=== PATIENT | female | born 1995 | race Caucasian/White ===

== ENCOUNTER 2016-07-25 01:29 | Emergency (ER) | payer BC ==
[~2016-07-25] VITALS: Ht 162.6 cm; Wt 54.2 kg
[2016-07-25 01:32] VITALS: BP 146/82; TEMP 36.6; Ht 162.6 cm; Wt 54.2 kg
--- NOTE | 2016-07-25 01:48 | EMERGENCY ROOM VISIT NOTE ---
History Report prepared by Annabelle: Rafael Beltran Under the Supervision of: Dr. Mikie Garza D.O. First contact with patient: 01:36 Chief Complaint: HEAD INJURY (MINOR) Stated Complaint: HEAD INJURY History of Present Illness The patient is a 21 year old female who presents to the Emergency Room with complaints of a sudden head injury beginning two hours prior to arrival. She currently rates her discomfort as a 6/10 in severity and associates a headache with today's symptoms. The patient states she was sitting on the edge of the tub and a heavy metal shower carmelo fell on the top of her head. She denies losing consciousness. The patient notes she was also drinking this evening. She denies nausea and vomiting. Source of History: patient Onset: two hours [employer] Position: head (top of head) Symptom Intensity: 6/10 Timing: other (sudden) Associated Symptoms: + headache, No LOC, No nausea, No vomiting Review of Systems See HPI for pertinent positives & negatives. A total of 10 systems reviewed and were otherwise negative. Past Medical & Surgical Medical Problems: (1) No pertinent past medical history Family History Patient reports no known family medical history. Social History Smoking Status: Never Smoker Alcohol Use: occasionally Drug Use: none Occupation Status: [employer] student Current/Historical Medications Unable to Obtain Active Prescriptions or Reported Meds Physical Exam Vital Signs Date Time Temp Pulse Resp B/P Pulse Ox O2 Delivery O2 Flow Rate FiO2 17 01:32 36.6 79 18 146/82 97 Room Air Physical Exam CONSTITUTIONAL/VITAL SIGNS: Reviewed / noted above. GENERAL: Non-toxic in appearance. INTEGUMENTARY: Warm, dry, and [place]. HEAD: Normocephalic. EYES: without scleral icterus or trauma. ENT/OROPHARYNX: clear and moist. LYMPHADENOPATHY/NECK: Is supple without lymphadenopathy or meningismus. RESPIRATORY: Lungs clear and equal. CARDIOVASCULAR: Regular rate and rhythm. GI/ABDOMEN: Soft and nontender. No organomegaly or pulsatile mass. No rebound or guarding. Normal bowel sounds. EXTREMITIES: Warm and well perfused. BACK: No CVA tenderness. NEUROLOGICAL: Intact without focal deficits. PSYCHIATRIC: normal affect. MUSCULOSKELETAL: Normally developed with good muscle tone. Medical Decision & Procedures ED Course 1337: Previous medical records were reviewed. The patient was evaluated in room C7. A complete history and physical examination was performed. 1345: On reevaluation, the patient is doing well. I discussed the results and findings with the patient. She verbalized agreement of the treatment plan. The patient was discharged home. Medical Decision Differential includes close head injury, intracranial bleed, facial trauma, cervical spine trauma, chest and thoracic trauma, abdominal and intra-abdominal trauma, spine neurologic trauma, extremity trauma. This is a 21-year-old female who presents to the ED with a chief complaint of a possible head injury. The patient states that a shower carmelo fell onto the top of her head. This occurred about 2 hours ago. She denied loss of consciousness. Her exam did not reveal any hematomas or obvious injury. She did complain of a slight headache. I do not suspect intracranial trauma. The patient is felt to be stable for discharge. Impression Primary Impression: Contusion of head Scribe Attestation The scribe's documentation has been prepared under my direction and personally reviewed by me in its entirety. I confirm that the note above accurately reflects all work, treatment, procedures, and medical decision making performed by me. Departure Information Dispostion Home / Self-Care Prescriptions Unable to Obtain Active Prescriptions or Reported Meds Referrals No Doctor, Assigned (PCP) Patient Instructions My [facility] Additional Instructions Follow-up with your doctor for further care and evaluation in 1-2 days. Return to the emergency department for worsening or new symptoms or any concerns. You have been examined and treated today on an emergency basis only. This is not a substitute for, or an effort to provide, complete comprehensive medical care. It is impossible to recognize and treat all injuries or illnesses in a single emergency department visit. It is therefore important that you follow up closely with your doctor. Call as soon as possible for an appointment.
[2016-07-25] MEDS ORDERED: BCPILLS PO (01:50)
[2016-07-25 01:58] VITALS: PULSE 76; O2SAT 99
== END 2016-07-25 02:00 | disposition home or self-care (01) ==
LOC: C.EDB 01:30 → C.EDC 02:00
DX: S00.93XA Contusion of unspecified part of head, initial encounter (principal); R51 Headache; W20.8XXA Other cause of strike by thrown, projected or falling object, initial encounter; Y92.89 Other specified places as the place of occurrence of the external cause